=== PATIENT | female | born 1935 | race Caucasian/White ===

== ENCOUNTER 2022-09-17 18:40 | Inpatient (IN) | payer MEDICARE ==
[~2022-09-17] VITALS: Ht 160 cm; Wt 53.5 kg
[~2022-09-17 18:40] MED LIST: ANUSOL-HC30 GM PR; ASPIRIN EC81 MG PO; CARTIA XT180 MG PO; COLCRYS0.6 MG PO; DILTIAZEM 24HR240 M1 PO; DILTIAZEM HCL120 MG PO; FUROSEMIDE20 MG PO; MAGNESIUM OXID400 MG PO; METOPROLOL TART25 MG PO; ONDANSETRON HCL4 MG PO; POTASSIUM CHLO10 ME2 PO; PREDNISONE10 MG PO; PREDNISONE20 MG PO; WARFARIN SODIU2.5 MG PO; WARFARIN SODIUM5 MG PO
--- NOTE | 2022-09-17 23:00 | NUR ---
PT ADMITTED TO CCU ROOM 126 FOR MED SURG HOUSE CONVENIENCE WITH DIAGNOSIS OF COPD EXAC/ AFIB/CHF. PT IS ALERT AND ORIENTED, ON ROOM AIR WITH SPO2 94%. MINIMAL SOB WITH ACITIVITY. LUNGS HAVE FINE CRACKLES IN BASES BILATERALLY. PT GIVEN ANTIBIOTICS AND CARDIZEM PO AND LEFT TO SLEEP SHE STATES SHE IS VERY TIRED. CALL LIGHT GIVEN WITH INSTRUCTION.
--- NOTE | 2022-09-18 01:30 | NUR ---
PT USED CALL LIGHT TO GET UP TO BR, UP WITH SBA, STEADY ON FEET. WAS ABLT TO VOID 300ML DARK URINE THEN BACK TO BED TO SLEEP AGAIN. STATES SHE IS FEELING A LOT BETTER SINCE SHE CAME.
--- NOTE | 2022-09-18 03:30 | NUR ---
PT CONTINUES TO REST, EYES CLOSED, RESP EVEN AND SLIGHTLY LABORED, RR 24 ON ROOM AIR WITH HR 70-80'S AFIB/FLUTTER.
--- NOTE | 2022-09-18 05:26 | NUR ---
PT UP TO BR AND BACK TO BED, SLIGHTLY SOB WITH ACTIVITY, HR REMAINS IN 80'S AFIB/AFLUTTER WHILE UP.
--- NOTE | 2022-09-18 05:50 | NUR ---
IN TO GIVE PO CARDIZEM, PT DENIES ANY NEEDS AT THIS TIME.
--- NOTE | 2022-09-18 07:30 | NUR ---
REPORT RECIEVED. PATIENT IS RESTING BED. NO DISTRESS NOTED. TALKED WITH PATIENT ABOUT POC FOR DAY, INDICATES UNDERSTANDING.
[2022-09-18] MEDS ORDERED: DILT-XR180 MG PO (10:29)
[2022-09-18] MEDS ORDERED: VENTOLIN HFA18 GM INH (10:29)
--- NOTE | 2022-09-18 10:58 | NUR ---
MED REC COMPLETE
--- NOTE | 2022-09-18 11:48 | NUR ---
Sitting in bed looking out window.Discussed the discharge plan with the Patient.The patient can not think of any needs at this time. Will reassess as needed.
--- NOTE | 2022-09-18 12:30 | NUR ---
TOOK LUNCH WELL.
--- NOTE | 2022-09-18 12:45 | NUR ---
RESTING HR-90, AMBULATING IN [place] HR TO 105. C/O INCREASED SHORTNESS OF BREATH. UPON RETURN TO ROOM, PATIENT STATES SHE FEELS LIKE SHE COULD USE AN INHALER. HR AFTER RESTING APPROX 2 MIN DOWN TO 85-90.
--- NOTE | 2022-09-18 13:24 | NUR ---
DR. MENDEZ UPDATED ON PATIENT, PLAN IS TO KEEP PATIENT IN HOSPITAL TODAY, POSSIBLE DISCHARGE TOMORROW.
--- NOTE | 2022-09-18 14:13 | NUR ---
PT ALERT, ORIENTED AND SEEMED PLEASED I VISITED. HAD PLEASANT VISIT, PT FEELS INFORMED, GAVE G.POST PT REQUESTED PRAYER AND BLESSING. WILL FOLLOW
--- NOTE | 2022-09-18 17:29 | NUR ---
REPORT FROM [facility].
--- NOTE | 2022-09-18 17:30 | NUR ---
REPORT TO MED-SURG.
--- NOTE | 2022-09-18 17:40 | NUR ---
TO MED-SURG VIA CHAIR.
--- NOTE | 2022-09-18 18:32 | NUR ---
PATIENT MOVED OVER FROM CCU, ASSESSMENT AND VITALS ARE COMPLETE. PATIENT TO BATHROOM WITH 1PA, MOSTLY STEADY ON HER FEET. PATIENT IS NOW RESTING IN BED, CALL LIGHT WITHIN REACH. BED ALARM IS ON.
--- NOTE | 2022-09-18 19:20 | NUR ---
bedside report from viky rn, pt sl ivs and tele # 10 hr 83 rate. pt reports leg cramps and asking for 1 packet of salt to eat - says it makes her cramps go away.... na lab wnl - and no leg edema and sl - salt oral packet given to pt per her request.
--- NOTE | 2022-09-18 21:33 | NUR ---
PO AND IV ABX GIVEN - AMB PT TO BATHROOM TO VOID 200 ML URINE. PT VERY HARD OF HEARING. IV RIGHT HAND INFILTEREATED AND DC INTACT - USING IV IN R ARM.
--- NOTE | 2022-09-19 02:24 | NUR ---
call light answered, pt up sba to void and back to bed. steady on feet, held this rn's hand for additional support. snack provided per pt request d/t "bitter taste in pt mouth". bed alarm resumed.
--- NOTE | 2022-09-19 05:02 | NUR ---
PT AMB TO BR TO VOID 200 ML - SOB WITH EXERTION - 97% SATS ROOM AIR - PT C/O SOB - NOT SURE ABOUT CHF - DISSCUSSED CURRENT ILLNESS PNEMONIA/CHF
--- NOTE | 2022-09-19 08:30 | NUR ---
Patient sitting up resting in chair. Patient reports a productive cough and shortness of breath with exertion. SP02 94% on room air, respirations non labored. Patient has voided several times this morning. Encouraged patient to call if she has needs, personal supplies and call light within reach.
--- NOTE | 2022-09-19 14:04 | NUR ---
PT TAKEN TO IMAGING. WILL CHECK BACK
--- NOTE | 2022-09-19 21:02 | NUR ---
ON ROOM AIR, SLIGHT DIM SOUNDS AT BASES, NO SOB WITH EXEERTION. ALERT AND ORIENTED, PLEASANT AND COOPERATIVE. UP TO BR, INC OF URINE, CLEAN ATTNED/SHE DRIBBLES. VOIDED CLEAR YELLOW URINE. MEDICATED PER C/O GENERALIZED PAIN, WITH TYLENOL, IV AND PO ABX, TOLERATING WELL. SL R A, RESTRICTED LEFT ARM PREVIOUS MASTECTOMY 9 YTS AGO. RED AREA INNER L ANKLE, NOT OPEN, OLD SCABBED AREA OVER LATERAL OUTER R ANKLE INTACT. TOLERATED FLUIDS WELL, CALL LIGHT AT HANDS REACH. [place]
--- NOTE | 2022-09-20 | NUR ---
SHEREE SOUNDING. PT SITTING ON EDGE OF BED, WANTED TO GET UP TO BATHROOM. PT SURPRISED, NEVER HAD THAT "HAPPEN", WALES, EXPLAINED WHAT HAPPENED. SHE SAYS SHE "ALWAYS" CALLS. UP TO BATHROOM. WANTS TO SIT ON EDGE OF BED.
--- NOTE | 2022-09-20 05:11 | NUR ---
PT HAS SLEPT, ON ROOM AIR, LUNGS DIM AND CRACKLES AT BASES LEFT MORE THAN RIGHT, OCCASIONAL DRY NON PRODUCTIVE COUGH PRESENT THIS AM. TOLERATING LIQUIDS WELL, NO EMESIS, MEDICATED X1 W TYLENOL PER GENERALIZED PAIN, EFFECTIVE. DOES NOT USES CALL LIGHT, BED ALRM ON AT HS. HAD WEAK AND SLOW GAIT AT BEGINING OF SHIFT, MUCH IMPROVED AND BETTER THIS AM. SIT EDGE OF BED AND REPOSITIONS SELF IN BED. PLEASANT AND COOP, FRESH FLUIDS AND CALL LIGHT AT HANDS REACH.
--- NOTE | 2022-09-20 09:00 | NUR ---
Patient sitting up in chair eating breakfast, no distress. Patient reports she slept well and is feeling better this morning. Patient denies shortness of breath at rest. Patient denies pain this morning. Patient's vital signs are stable this morning. No current needs, personal supplies and call light within reach.
--- NOTE | 2022-09-20 09:12 | NUR ---
PT LAYING DOWN IN BED. VITALS AND IS AND OS COMPLETE. NO FURTHER NEEDS. CALL LIGHT WITHIN REACH.
--- NOTE | 2022-09-20 10:23 | NUR ---
SITTING IN BED LOOKINF OUT WINDOW.DISCUSSED DISCHARGE PLAN.PATIENT PLANS TO GO HOME WTH HER . THE PATIENT STATES THAT HER CAN HELP WITH ANYTHING SHE NEEDS. PATIENT HOPES FOR DISCHARGE SOON.
[2022-09-20] MEDS ORDERED: CEFPODOXIME PR200 MG PO (14:34)
--- NOTE | 2022-09-21 13:52 | EKG ---
[facility] [address] [facility] [place] [address] Signed Atrial flutter with variable AV block ST \T\ T wave abnormality, consider inferolateral ischemia Abnormal ECG When compared with ECG of 17-SEP-2022 18:45, (Unconfirmed) Atrial flutter has replaced Atrial fibrillation T wave inversion now evident in Anterior leads Confirmed by STARR MENDEZ MD ([id number]) on 09/21/2022 1:52:31 PM Electronically Signed By: STARR MENDEZ MD 09/21/22 1352 PATIENT NAME: BRIDGET ARCINIEGA Electrocardiogram DATE OF : [birth year] PHYSICIAN: STARR MENDEZ MD REPORT #: [id number] REPORT IS CONFIDENTIAL AND NOT TO BE RELEASED WITHOUT AUTHORIZATION
--- NOTE | 2022-09-21 13:52 | EKG ---
[facility] [address] [place] [address] Signed Atrial fibrillation with rapid ventricular response with premature ventricular or aberrantly conducted complexes Minimal voltage criteria for LVH, may be normal variant ( Quintin product ) ST \T\ T wave abnormality, consider inferolateral ischemia Abnormal ECG When compared with ECG of 17-AUG-2018 01:07, ST no longer depressed in Anterior leads Nonspecific T wave abnormality, worse in Inferior leads T wave inversion no longer evident in Anterior leads Confirmed by STARR MENDEZ MD ([id number]) on 09/21/2022 1:52:16 PM Electronically Signed By: STARR MENDEZ MD 09/21/22 [facility] PATIENT NAME: BRIDGET ARCINIEGA Electrocardiogram DATE OF : [birth year] PHYSICIAN: STARR MENDEZ MD REPORT #: [id number] REPORT IS CONFIDENTIAL AND NOT TO BE RELEASED WITHOUT AUTHORIZATION
== END 2022-09-20 15:25 | disposition home or self-care (01) | DRG 194 ==
LOC: ED 18:40 → CCU 18:42 → MS 09-18 17:45
PROVIDERS: ADMIT Internal Medicine; ATTEND Internal Medicine
DX: J13 Pneumonia due to Streptococcus pneumoniae (principal); I48.21 Permanent atrial fibrillation; J44.1 Chronic obstructive pulmonary disease with (acute) exacerbation; I48.92 Unspecified atrial flutter; J44.0 Chronic obstructive pulmonary disease with (acute) lower respiratory infection; Z20.822 Contact with and (suspected) exposure to COVID-19; I10 Essential (primary) hypertension; Z85.3 Personal history of malignant neoplasm of breast; Z87.19 Personal history of other diseases of the digestive system; Z90.12 Acquired absence of left breast and nipple; Z98.890 Other specified postprocedural states; Z88.1 Allergy status to other antibiotic agents; Z91.018 Allergy to other foods; Z79.82 Long term (current) use of aspirin; Z79.899 Other long term (current) drug therapy
CPT/HCPCS: 36415; 71045; 71046; 71260; 80048; 80053; 81001; 83605; 83735; 83880; 84484; 85025; 85379; 87070; 87088; 87205; 87502; 93005; 93010; 94640; 94667; 94760; A9270; J0696; J1650; J2930; J7030; Q9967; U0003